=== PATIENT | male | born 1945 | race Caucasian/White ===

== ENCOUNTER 2022-01-21 20:03 | Inpatient (IN) | payer OTHER ==
[~2022-01-21] VITALS: Ht 182.9 cm; Wt 112.5 kg
[2022-01-21] MEDS ORDERED: ALBUTEROL SULFATE 0.083% 2.5 MG/3 ML VIAL.NEB INH ONE ×2 (20:12→20:15)
[2022-01-21] MEDS ORDERED: IPRATROPIUM BROM 0.5 MG/2.5 ML VIAL.NEB (ATROVENT) INH ONE ×2 (20:12→20:15)
[2022-01-21] MEDS ORDERED: NACL 0.9% 1,000 ML IV ONE (20:15)
[2022-01-21] MEDS ORDERED: methylPREDNISolone SOD SUCC/PF 62.5 MG/ML VIAL IVP ONE (20:15)
[2022-01-21] MEDS ORDERED: methylPREDNISolone SOD SUCC/PF 62.5 MG/ML VIAL ONE (20:16)
[2022-01-21] MEDS ORDERED: NS 500 ML IV ONE (20:30)
[2022-01-21 20:50] LABS: BASOPHILS % (AUTO) 0.1 % (0.0-2.0); EOSINOPHILS # (AUTO) 0.1 K/uL (0.0-0.4); EOSINOPHILS % (AUTO) 0.5 % (0.0-4.0); HEMOGLOBIN 14.4 g/dL (14.0-18.0); LYMPHOCYTES # (AUTO) 1.1 K/uL (1.0-5.5); LYMPHOCYTES % (AUTO) 7.8 % (20.5-51.5); MEAN CORPUSCULAR HEMOGLOBIN 32 pg (27-31); MEAN CORPUSCULAR HGB CONC 33 % (32-36); MEAN CORPUSCULAR VOLUME 97 fL (79.0-98.0); MONOCYTES % (AUTO) 7.2 % (1.7-9.3); NEUTROPHILS # (AUTO) 12.1 K/uL (1.8-7.7); NEUTROPHILS % (AUTO) 84.4 % (40.0-70.0); PLATELET COUNT (AUTO) 249 K/uL (130-430); RED BLOOD CELL COUNT(AUTO) 4.45 MIL/uL (4.2-6.2); RED CELL DISTRIBUTION WIDTH 13.5 % (9.0-15.0); WHITE BLOOD COUNT (AUTO) 14.3 K/uL (4.8-10.8)
[2022-01-21 21:02] LABS: ANION GAP 8 (5-15); CALCIUM 7.9 mg/dL (8.4-11.0); CHLORIDE 102 mmol/L (98-107); CREATININE 1.09 mg/dL (0.55-1.30); GLUCOSE 152 mg/dL (70-99); POTASSIUM 3.7 mmol/L (3.5-5.1); SODIUM SERUM 143 mmol/L (136-145); UREA NITROGEN, BLOOD 32 mg/dL (8-21)
[2022-01-21 21:11] LABS: ALANINE AMINOTRANSFERASE 66 U/L (12-78); ALBUMIN 3.4 g/dL (3.4-4.8); ASPARTATE AMINOTRANSFERASE 25 U/L (10-37); TOTAL BILIRUBIN 0.5 mg/dL (0.0-1.0)
[2022-01-21] MEDS ORDERED: PRED5TAB PO (21:50)
[2022-01-21] MEDS ORDERED: [UNRECOGNIZED DRUG - CODE] PO (21:52)
[2022-01-21] MEDS ORDERED: MONT10TA22 PO (21:52)
[2022-01-21] MEDS ORDERED: TIOT4MIS5 IH (21:54)
[2022-01-21] MEDS ORDERED: FLUT1DIS IH (21:55)
[2022-01-21] MEDS ORDERED: FURO20TA4 PO (21:56)
[2022-01-21] MEDS ORDERED: FURO-150 PO (21:56)
[2022-01-21] MEDS ORDERED: METO10TA8 PO (21:58)
[2022-01-21] MEDS ORDERED: DOXA2TAB PO (21:59)
[2022-01-21] MEDS ORDERED: POTA-197 PO (22:00)
[2022-01-21] MEDS ORDERED: CYAN100097 PO (22:01)
[2022-01-21] MEDS ORDERED: MULT-1200 PO (22:04)
[2022-01-21] MEDS ORDERED: METO25TA3 PO (22:16)
[2022-01-21] MEDS ORDERED: METO-540 PO (22:16)
[2022-01-21 22:51] VITALS: BP_SYST 118
[2022-01-21] MEDS: D5/0.45 NS 1,000 ML IV SCH (23:06)
[2022-01-21] MEDS: METHYLPREDNISOLONE SOD SUCC 40 MG/ML VIAL IVP SCH (23:27)
[2022-01-22] VITALS: BP_SYST 114
[2022-01-22 00:52] VITALS: BP_SYST 118
[2022-01-22] MEDS: ALBUTEROL SULFATE 0.083% 2.5 MG/3 ML VIAL.NEB INH SCH ×6 (03:00→23:41)
[2022-01-22] MEDS: IPRATROPIUM BROM 0.5 MG/2.5 ML VIAL.NEB (ATROVENT) INH SCH ×6 (03:00→23:42)
[2022-01-22 04:00] VITALS: BP_SYST 155
[2022-01-22] MEDS: D5/0.45 NS 1,000 ML IV SCH (08:30)
[2022-01-22] MEDS: METHYLPREDNISOLONE SOD SUCC 40 MG/ML VIAL IVP SCH ×2 (08:30→21:07)
[2022-01-22] MEDS ORDERED: LORazepam 2 MG/ML VIAL IVP PRN (10:45)
[2022-01-22] MEDS ORDERED: NALOXONE HCL 0.4 MG/ML AMP (NARCAN) IVP PRN ×2 (10:45)
[2022-01-22] MEDS ORDERED: HYDROcodone/ACETAMIN 10-325 MG TAB PO PRN (10:45)
[2022-01-22] MEDS ORDERED: HYDROcodone/ACETAMIN 5-325 MG TAB (NORCO/ VICODIN) PO PRN (10:45)
[2022-01-22] MEDS ORDERED: ONDANSETRON HCL 4 MG/2 ML VIAL IVP PRN (10:45)
[2022-01-22] MEDS ORDERED: ACETAMINOPHEN 325 MG TABLET PO PRN (10:45)
[2022-01-22 11:41] VITALS: BP_SYST 118
[2022-01-22] MEDS: BUDESONIDE 0.5 MG/2 ML AMPUL.NEB INH SCH ×2 (12:09→20:18)
[2022-01-22] MEDS: NORMAL SALINE 5 ML DISP.SYRIN IVF SCH ×4 (13:42→21:21)
[2022-01-22 16:21] VITALS: BP_SYST 117; BP_SYST 121
[2022-01-22] MEDS: MONTELUKAST 10 MG TABLET PO SCH (18:20)
[2022-01-22] MEDS: FUROSEMIDE 20 MG TABLET PO SCH (18:20)
[2022-01-22 20:00] VITALS: BP_SYST 113
[2022-01-22] MEDS: DOXAZOSIN MESYLATE 2 MG TABLET PO SCH (21:06)
[2022-01-23] VITALS: BP_SYST 116
[2022-01-23] MEDS: ALBUTEROL SULFATE 0.083% 2.5 MG/3 ML VIAL.NEB INH SCH ×5 (03:00→20:41)
[2022-01-23] MEDS: IPRATROPIUM BROM 0.5 MG/2.5 ML VIAL.NEB (ATROVENT) INH SCH ×5 (03:00→20:41)
[2022-01-23 04:00] VITALS: BP_SYST 111
[2022-01-23] MEDS: NORMAL SALINE 5 ML DISP.SYRIN IVF SCH ×6 (05:32→20:26)
[2022-01-23 06:06] LABS: BASOPHILS % (AUTO) 0.1 % (0.0-2.0); HEMATOCRIT 38.3 % (36-54); HEMOGLOBIN 12.5 g/dL (14.0-18.0); LYMPHOCYTES # (AUTO) 0.4 K/uL (1.0-5.5); LYMPHOCYTES % (AUTO) 2.7 % (20.5-51.5); MEAN CORPUSCULAR HEMOGLOBIN 32 pg (27-31); MEAN CORPUSCULAR HGB CONC 33 % (32-36); MEAN CORPUSCULAR VOLUME 98 fL (79.0-98.0); MONOCYTES # (AUTO) 0.5 K/uL (0.0-1.0); MONOCYTES % (AUTO) 3.8 % (1.7-9.3); NEUTROPHILS # (AUTO) 12.8 K/uL (1.8-7.7); NEUTROPHILS % (AUTO) 93.4 % (40.0-70.0); PLATELET COUNT (AUTO) 196 K/uL (130-430); RED BLOOD CELL COUNT(AUTO) 3.93 MIL/uL (4.2-6.2); RED CELL DISTRIBUTION WIDTH 13.6 % (9.0-15.0); WHITE BLOOD COUNT (AUTO) 13.7 K/uL (4.8-10.8)
[2022-01-23 06:27] LABS: ANION GAP 7 (5-15); CALCIUM 7.7 mg/dL (8.4-11.0); CHLORIDE 103 mmol/L (98-107); CREATININE 0.65 mg/dL (0.55-1.30); GLUCOSE 161 mg/dL (70-99); POTASSIUM 3.6 mmol/L (3.5-5.1); SODIUM SERUM 141 mmol/L (136-145); UREA NITROGEN, BLOOD 16 mg/dL (8-21)
[2022-01-23 08:20] VITALS: BP_SYST 146
[2022-01-23] MEDS ORDERED: FUROSEMIDE 20 MG TABLET PO SCH (09:00)
[2022-01-23] MEDS: BUDESONIDE 0.5 MG/2 ML AMPUL.NEB INH SCH ×2 (09:36→20:41)
[2022-01-23] MEDS: MULTIVITS,CA,MINERALS/IRON/FA 1 TABLET PO SCH (09:40)
[2022-01-23] MEDS: METOPROLOL SUCCINATE 25 MG TAB.SR.24H (TOPROL XL) PO SCH (09:40)
[2022-01-23] MEDS: POTASSIUM CHLORIDE 20 MEQ TAB.PRT.SR PO SCH (09:40)
[2022-01-23] MEDS: CYANOCOBALAMIN 1000 mCg TABLET PO SCH (09:41)
[2022-01-23] MEDS: METHYLPREDNISOLONE SOD SUCC 40 MG/ML VIAL IVP SCH ×2 (09:42→20:24)
[2022-01-23 13:17] VITALS: BP_SYST 118
[2022-01-23 15:34] VITALS: BP_SYST 115
[2022-01-23] MEDS: MONTELUKAST 10 MG TABLET PO SCH (17:20)
[2022-01-23] MEDS: FUROSEMIDE 20 MG TABLET PO SCH (17:20)
[2022-01-23 20:00] VITALS: BP_SYST 133
[2022-01-23] MEDS: DOXAZOSIN MESYLATE 2 MG TABLET PO SCH (20:25)
[2022-01-24] VITALS: BP_SYST 124
[2022-01-24] MEDS: ALBUTEROL SULFATE 0.083% 2.5 MG/3 ML VIAL.NEB INH SCH ×4 (00:38→11:18)
[2022-01-24] MEDS: IPRATROPIUM BROM 0.5 MG/2.5 ML VIAL.NEB (ATROVENT) INH SCH ×4 (00:39→11:17)
[2022-01-24 04:08] VITALS: BP_SYST 112
[2022-01-24] MEDS: NORMAL SALINE 5 ML DISP.SYRIN IVF SCH ×2 (05:23→05:24)
[2022-01-24 06:24] LABS: BASOPHILS % (AUTO) 0.2 % (0.0-2.0); EOSINOPHILS % (AUTO) 0.2 % (0.0-4.0); HEMATOCRIT 39.8 % (36-54); HEMOGLOBIN 13.2 g/dL (14.0-18.0); LYMPHOCYTES # (AUTO) 0.5 K/uL (1.0-5.5); LYMPHOCYTES % (AUTO) 4.5 % (20.5-51.5); MEAN CORPUSCULAR HEMOGLOBIN 32 pg (27-31); MEAN CORPUSCULAR HGB CONC 33 % (32-36); MEAN CORPUSCULAR VOLUME 97 fL (79.0-98.0); MONOCYTES # (AUTO) 0.5 K/uL (0.0-1.0); MONOCYTES % (AUTO) 4.4 % (1.7-9.3); NEUTROPHILS # (AUTO) 10.7 K/uL (1.8-7.7); NEUTROPHILS % (AUTO) 90.7 % (40.0-70.0); PLATELET COUNT (AUTO) 198 K/uL (130-430); RED BLOOD CELL COUNT(AUTO) 4.11 MIL/uL (4.2-6.2); RED CELL DISTRIBUTION WIDTH 13.5 % (9.0-15.0); WHITE BLOOD COUNT (AUTO) 11.8 K/uL (4.8-10.8)
[2022-01-24 06:38] LABS: ANION GAP 5 (5-15); CALCIUM 7.9 mg/dL (8.4-11.0); CHLORIDE 102 mmol/L (98-107); CREATININE 0.78 mg/dL (0.55-1.30); GLUCOSE 161 mg/dL (70-99); POTASSIUM 3.5 mmol/L (3.5-5.1); SODIUM SERUM 141 mmol/L (136-145); UREA NITROGEN, BLOOD 17 mg/dL (8-21)
[2022-01-24] MEDS: BUDESONIDE 0.5 MG/2 ML AMPUL.NEB INH SCH (07:42)
[2022-01-24 08:12] VITALS: BP_SYST 146
[2022-01-24] MEDS: METHYLPREDNISOLONE SOD SUCC 40 MG/ML VIAL IVP SCH (08:45)
[2022-01-24] MEDS: MULTIVITS,CA,MINERALS/IRON/FA 1 TABLET PO SCH (08:46)
[2022-01-24] MEDS: CYANOCOBALAMIN 1000 mCg TABLET PO SCH (08:46)
[2022-01-24] MEDS: POTASSIUM CHLORIDE 20 MEQ TAB.PRT.SR PO SCH (08:46)
[2022-01-24] MEDS: METOPROLOL SUCCINATE 25 MG TAB.SR.24H (TOPROL XL) PO SCH (08:47)
[2022-01-24] MEDS ORDERED: FUROSEMIDE 40 MG TABLET PO SCH (09:00)
[2022-01-24] MEDS ORDERED: PRED20TA PO (11:29)
[2022-01-24 11:47] VITALS: BP_SYST 130
[2022-01-24 12:00] VITALS: BP_SYST 130
[2022-01-25] MEDS ORDERED: metOLazone 5 MG TABLET PO SCH (09:00)
== END 2022-01-24 12:15 | disposition home or self-care (01) | DRG 189 ==
LOC: SED 20:03 → STU 21:39 → SMU 01-24 10:02
PROVIDERS: ADMIT Preventive Medicine Preventive Medicine/Occupational Environmental Medicine; ATTEND Preventive Medicine Preventive Medicine/Occupational Environmental Medicine
PROC: 5A09357 Assistance with Respiratory Ventilation, Less than 24 Consecutive Hours, Continuous Positive Airway Pressure (ICD-10-PCS; principal; 2022-01-21)
PROC: 5A09357 Assistance with Respiratory Ventilation, Less than 24 Consecutive Hours, Continuous Positive Airway Pressure (ICD-10-PCS; 2022-01-22)
DX: J96.01 Acute respiratory failure with hypoxia (principal); J44.1 Chronic obstructive pulmonary disease with (acute) exacerbation; J96.02 Acute respiratory failure with hypercapnia; E83.51 Hypocalcemia; D72.829 Elevated white blood cell count, unspecified; N40.0 Benign prostatic hyperplasia without lower urinary tract symptoms; Z20.822 Contact with and (suspected) exposure to COVID-19; C44.90 Unspecified malignant neoplasm of skin, unspecified; E83.52 Hypercalcemia; R73.9 Hyperglycemia, unspecified; Z79.899 Other long term (current) drug therapy; Z85.828 Personal history of other malignant neoplasm of skin; Z87.891 Personal history of nicotine dependence
CPT/HCPCS: 36415; 36600; 71045; 80048; 80053; 82803-TC; 83605; 83880; 84484; 85025; 87040; 93005; 94640; 94660; 94760; 96361; 96374; 97163-GP; 99291; G0378; J1030; J2060; J2930; J7030; J7040; J7613; J7626

== ENCOUNTER 2022-02-16 04:52 | Inpatient (IN) | payer OTHER ==
[~2022-02-16] VITALS: Ht 182.9 cm; Wt 104.3 kg
[~2022-02-16 04:52] MED LIST: CYAN100097 PO; DOXA2TAB PO; FLUT1DIS IH; FURO-150 PO; FURO20TA4 PO; METO-540 PO; METO10TA8 PO; METO25TA3 PO; MONT10TA22 PO; MULT-1200 PO; POTA-197 PO; PRED20TA PO; PRED5TAB PO; TIOT4MIS5 IH; [UNRECOGNIZED DRUG - CODE] PO
[2022-02-16 05:03] VITALS: BP_SYST 123
[2022-02-16] MEDS ORDERED: AZITHROMYCIN 500 MG in NS 250 ML IV ONE (05:15)
[2022-02-16] MEDS ORDERED: methylPREDNISolone SOD SUCC/PF 62.5 MG/ML VIAL IVP ONE (05:15)
[2022-02-16] MEDS ORDERED: ALBUTEROL SULFATE 0.083% 2.5 MG/3 ML VIAL.NEB INH ONE (05:15)
[2022-02-16 05:35] LABS: BASOPHILS # (AUTO) 0.1 K/uL (0.0-0.2); BASOPHILS % (AUTO) 0.5 % (0.0-2.0); EOSINOPHILS % (AUTO) 0.1 % (0.0-4.0); HEMATOCRIT 39.7 % (36-54); HEMOGLOBIN 13.3 g/dL (14.0-18.0); LYMPHOCYTES # (AUTO) 1.2 K/uL (1.0-5.5); LYMPHOCYTES % (AUTO) 9.7 % (20.5-51.5); MEAN CORPUSCULAR HEMOGLOBIN 32 pg (27-31); MEAN CORPUSCULAR HGB CONC 34 % (32-36); MEAN CORPUSCULAR VOLUME 96 fL (79.0-98.0); MONOCYTES # (AUTO) 1.1 K/uL (0.0-1.0); MONOCYTES % (AUTO) 8.6 % (1.7-9.3); NEUTROPHILS # (AUTO) 10.2 K/uL (1.8-7.7); NEUTROPHILS % (AUTO) 81.1 % (40.0-70.0); PLATELET COUNT (AUTO) 253 K/uL (130-430); RED BLOOD CELL COUNT(AUTO) 4.14 MIL/uL (4.2-6.2); RED CELL DISTRIBUTION WIDTH 13.4 % (9.0-15.0); WHITE BLOOD COUNT (AUTO) 12.5 K/uL (4.8-10.8)
[2022-02-16] MEDS ORDERED: AZITHROMYCIN 500 MG/VIAL (ZITHROMAX) IV ONE (05:36)
[2022-02-16 05:56] LABS: ANION GAP 5 (5-15); CALCIUM 7.8 mg/dL (8.4-11.0); CHLORIDE 92 mmol/L (98-107); CREATININE 1.22 mg/dL (0.55-1.30); GLUCOSE 126 mg/dL (70-99); SODIUM SERUM 136 mmol/L (136-145); UREA NITROGEN, BLOOD 36 mg/dL (8-21)
[2022-02-16 06:05] LABS: ALANINE AMINOTRANSFERASE 48 U/L (12-78); ALBUMIN 3.2 g/dL (3.4-4.8); ASPARTATE AMINOTRANSFERASE 22 U/L (10-37); TOTAL BILIRUBIN 0.5 mg/dL (0.0-1.0)
[2022-02-16 06:08] LABS: POTASSIUM 2.9 mmol/L (3.5-5.1)
[2022-02-16] MEDS ORDERED: KCL 20 mEq in 100 mL (PREMIX) 100 ML IV ONE ×2 (06:15→06:21)
[2022-02-16] MEDS ORDERED: LIDOCAINE PATCH 5% 1 EA TP ONE ×2 (06:52→07:00)
[2022-02-16] MEDS ORDERED: MAGNESIUM SULFATE 50 ML IV ONE (07:15)
[2022-02-16] MEDS ORDERED: IPRATROPIUM BROM 0.5 MG/2.5 ML VIAL.NEB (ATROVENT) INH ONE (07:15)
[2022-02-16] MEDS ORDERED: IBUPROFEN 600 MG TABLET PO ONE (08:00)
[2022-02-16] MEDS ORDERED: POTASSIUM CHLORIDE 20 MEQ TAB.PRT.SR PO ONE (08:00)
[2022-02-16] MEDS ORDERED: FURO80TA3 PO (08:39)
[2022-02-16] MEDS ORDERED: SPIRIVA INH (08:39)
[2022-02-16] MEDS ORDERED: AZIT500T3 PO (08:39)
[2022-02-16] MEDS ORDERED: POTA-197 PO (08:39)
[2022-02-16] MEDS ORDERED: METO10TA16 PO (08:39)
[2022-02-16] MEDS ORDERED: MONT-40 PO (08:39)
[2022-02-16] MEDS ORDERED: PRED10TA PO (08:39)
[2022-02-16] MEDS ORDERED: DOXA2TAB PO (08:39)
[2022-02-16] MEDS ORDERED: ALBUTEROL SULFATE 0.083% 2.5 MG/3 ML VIAL.NEB INH PRN (10:45)
[2022-02-16] MEDS ORDERED: IPRATROPIUM BROM 0.5 MG/2.5 ML VIAL.NEB (ATROVENT) INH PRN (10:45)
[2022-02-16 10:46] VITALS: BP_SYST 104
[2022-02-16] MEDS ORDERED: cefTRIAXone 1 GM in D5W 50 ML IV SCH (11:00)
[2022-02-16] MEDS: IPRATROPIUM BROM 0.5 MG/2.5 ML VIAL.NEB (ATROVENT) INH SCH ×2 (13:48→20:51)
[2022-02-16] MEDS: ALBUTEROL SULFATE 0.083% 2.5 MG/3 ML VIAL.NEB INH SCH ×2 (13:48→20:51)
[2022-02-16 17:35] VITALS: BP_SYST 156
[2022-02-16 19:00] VITALS: BP_SYST 137
[2022-02-16 20:00] VITALS: BP_SYST 137
[2022-02-16] MEDS ORDERED: AZITHROMYCIN 500 MG in NS 250 ML IV SCH (21:00)
[2022-02-17] MEDS: ALBUTEROL SULFATE 0.083% 2.5 MG/3 ML VIAL.NEB INH SCH ×3 (02:22→12:07)
[2022-02-17] MEDS: IPRATROPIUM BROM 0.5 MG/2.5 ML VIAL.NEB (ATROVENT) INH SCH ×3 (02:23→12:07)
[2022-02-17 08:41] VITALS: BP_SYST 132
[2022-02-17] MEDS ORDERED: predniSONE 20 MG TABLET PO SCH (09:00)
[2022-02-17 09:06] LABS: BASOPHILS # (AUTO) 0.1 K/uL (0.0-0.2); BASOPHILS % (AUTO) 0.4 % (0.0-2.0); EOSINOPHILS % (AUTO) 0.3 % (0.0-4.0); HEMATOCRIT 40.6 % (36-54); HEMOGLOBIN 13.6 g/dL (14.0-18.0); LYMPHOCYTES % (AUTO) 8.4 % (20.5-51.5); MEAN CORPUSCULAR HEMOGLOBIN 32 pg (27-31); MEAN CORPUSCULAR HGB CONC 34 % (32-36); MEAN CORPUSCULAR VOLUME 96 fL (79.0-98.0); MONOCYTES % (AUTO) 8.1 % (1.7-9.3); NEUTROPHILS % (AUTO) 82.8 % (40.0-70.0); PLATELET COUNT (AUTO) 248 K/uL (130-430); RED BLOOD CELL COUNT(AUTO) 4.23 MIL/uL (4.2-6.2); RED CELL DISTRIBUTION WIDTH 13.3 % (9.0-15.0)
[2022-02-17 09:16] LABS: ANION GAP 6 (5-15); CALCIUM 8.6 mg/dL (8.4-11.0); CHLORIDE 95 mmol/L (98-107); CREATININE 1.03 mg/dL (0.55-1.30); GLUCOSE 109 mg/dL (70-99); SODIUM SERUM 138 mmol/L (136-145); UREA NITROGEN, BLOOD 29 mg/dL (8-21)
[2022-02-17 09:22] LABS: ALANINE AMINOTRANSFERASE 61 U/L (12-78); ALBUMIN 3.1 g/dL (3.4-4.8); ASPARTATE AMINOTRANSFERASE 38 U/L (10-37); TOTAL BILIRUBIN 0.6 mg/dL (0.0-1.0)
[2022-02-17] MEDS ORDERED: methylPREDNISolone SOD SUCC/PF 62.5 MG/ML VIAL IVP ONE (10:00)
[2022-02-17 10:47] VITALS: BP_SYST 132
[2022-02-17 11:41] VITALS: BP_SYST 130
[2022-02-17 11:55] VITALS: BP_SYST 130
[2022-02-17] MEDS ORDERED: methylPREDNISolone SOD SUCC/PF 62.5 MG/ML VIAL IVP SCH (18:00)
[2022-02-18] MEDS ORDERED: predniSONE 20 MG TABLET PO SCH (09:00)
== END 2022-02-17 12:25 | disposition home or self-care (01) | DRG 189 ==
LOC: SED 04:52 → STU 08:16
PROVIDERS: ADMIT Internal Medicine Hospice and Palliative Medicine; ATTEND Internal Medicine Hospice and Palliative Medicine
DX: J96.21 Acute and chronic respiratory failure with hypoxia (principal); J44.1 Chronic obstructive pulmonary disease with (acute) exacerbation; J96.22 Acute and chronic respiratory failure with hypercapnia; I11.0 Hypertensive heart disease with heart failure; E87.6 Hypokalemia; I50.9 Heart failure, unspecified; Z20.822 Contact with and (suspected) exposure to COVID-19; Z85.828 Personal history of other malignant neoplasm of skin; Z87.891 Personal history of nicotine dependence; Z99.81 Dependence on supplemental oxygen
CPT/HCPCS: 36415; 70450-TC; 71045; 76376; 80053; 83880; 84484; 85025; 86738; 87040; 93005; 94640; 94664; 94760; 96365; 96366; 96367; 96375; 99291; G0378; J0456; J0696; J2930; J3475; J3480; J7050; J7060; J7512; J7613